=== PATIENT | male | born 1950 | race Caucasian/White ===

== ENCOUNTER 2021-12-18 19:14 | Inpatient (IN) | payer MEDICARE ==
[2021-12-18] MEDS ORDERED: Sodium Chloride 0.9% 10 ML Syringe FLUSH PRN (20:44)
[2021-12-18 21:37] LABS: ESTIMATED GFR > 60 (>60)
[2021-12-18] MEDS ORDERED: Sodium Chloride 0.9% 75 ML IV SCH (22:00)
[2021-12-18] MEDS ORDERED: Iopamidol 612 MG/ML 100 ML Bottle IV SCH (22:00)
[2021-12-18] MEDS ORDERED: Ondansetron 4 MG/2 ML SDV IVPUSH ONE (22:50)
[2021-12-18] MEDS ORDERED: Piperacillin/Tazobactam 3.375 GM in Sodium Chloride 0.9% 50 ML IV ONE (23:08)
[2021-12-19] MEDS ORDERED: DECITABINE PO SCH (00:08)
[2021-12-19] MEDS ORDERED: [UNRECOGNIZED DRUG - OTHER] PO SCH (00:08)
[2021-12-19] MEDS ORDERED: Albuterol 8 GM Inhaler INH PRN ×2 (00:08→17:22)
[2021-12-19] MEDS ORDERED: Prochlorperazine 10 MG Tab PO PRN (00:08)
[2021-12-19] MEDS ORDERED: Acetaminophen 325 MG Tab PO PRN (00:08)
[2021-12-19] MEDS ORDERED: Ondansetron 4 MG Tab.DIS PO PRN (00:08)
[2021-12-19] MEDS ORDERED: CEDAZURIDINE PO SCH (00:08)
[2021-12-19] MEDS: Sodium Chloride 0.9% 1,000 ML IV SCH ×2 (00:53→09:24)
[2021-12-19] MEDS ORDERED: Piperacillin/Tazobactam 3.375 GM in Sodium Chloride 0.9% 50 ML IV SCH (05:10)
[2021-12-19] MEDS ORDERED: Formoterol/Mometasone 200-5 MCG 8.8 GM Inhaler IH SCH ×2 (07:00→07:18)
[2021-12-19] MEDS: Acyclovir 200 MG Cap PO SCH ×2 (08:19→21:27)
[2021-12-19] MEDS: Lactobacillus Rhamnosus GG (Probiotic) Cap PO SCH (08:19)
[2021-12-19] MEDS: Folic Acid 1 MG Tab PO SCH (08:19)
[2021-12-19] MEDS: Fluconazole 100 MG Tab PO SCH (08:19)
[2021-12-19] MEDS: Multivitamins with Iron/Calcium/Folic Acid/Minerals Tab PO SCH (08:19)
[2021-12-19] MEDS: Calcium Carbonate/Vitamin D3 1500 MG-400 Units Tab PO SCH (08:19)
[2021-12-19] MEDS: Cholecalciferol (Vitamin D3) 25 MCG Tab PO SCH (08:19)
[2021-12-19] MEDS: Formoterol/Mometasone 200-5 MCG 8.8 GM Inhaler IH SCH ×2 (08:19→21:34)
[2021-12-19] MEDS: Allopurinol 100 MG Tab PO SCH (08:20)
[2021-12-19] MEDS: Lisinopril 5 MG Tab PO SCH (08:20)
[2021-12-19] MEDS: Metoprolol Succinate 25 MG Tab.ER PO SCH (08:20)
[2021-12-19] MEDS ORDERED: GINGER ROOT 550 MG PO SCH (09:00)
[2021-12-19] MEDS ORDERED: MILK THISTLE 150 MG PO SCH (09:00)
[2021-12-19] MEDS ORDERED: Sodium Chloride 0.9% 1,000 ML IV SCH ×2 (10:30→17:30)
[2021-12-19] MEDS: Piperacillin/Tazobactam/Dext 3.375 GM in Premix Bag 1 BAG IV SCH ×3 (10:58→21:28)
[2021-12-19] MEDS: [UNRECOGNIZED DRUG - OTHER] PO SCH (13:23)
[2021-12-19] MEDS ORDERED: diphenhydrAMINE 25 MG Cap PO PRN (17:14)
[2021-12-19] MEDS ORDERED: diphenhydrAMINE 25 MG Cap PO STA (17:15)
[2021-12-19] MEDS ORDERED: methylPREDNISolone Sodium Succinate 125 MG/2 ML SDV IVPUSH ONE (17:30)
[2021-12-19] MEDS ORDERED: EPINEPHrine 1 MG/ML SDV IM ONE (17:58)
[2021-12-19] MEDS ORDERED: Famotidine 20 MG/2 ML SDV IVPUSH ONE (18:00)
[2021-12-19] MEDS ORDERED: Fluconazole 100 MG Tab PO SCH (19:30)
[2021-12-19] MEDS: Rosuvastatin 10 MG Tab PO SCH (21:27)
[2021-12-20] MEDS: Piperacillin/Tazobactam/Dext 3.375 GM in Premix Bag 1 BAG IV SCH ×2 (04:11→09:48)
[2021-12-20] MEDS: Formoterol/Mometasone 200-5 MCG 8.8 GM Inhaler IH SCH ×2 (07:09→21:08)
[2021-12-20] MEDS: Allopurinol 100 MG Tab PO SCH (08:09)
[2021-12-20] MEDS: Lactobacillus Rhamnosus GG (Probiotic) Cap PO SCH (08:09)
[2021-12-20] MEDS: [UNRECOGNIZED DRUG - OTHER] PO SCH (08:09)
[2021-12-20] MEDS: Calcium Carbonate/Vitamin D3 1500 MG-400 Units Tab PO SCH (08:09)
[2021-12-20] MEDS: Cholecalciferol (Vitamin D3) 25 MCG Tab PO SCH (08:10)
[2021-12-20] MEDS: Folic Acid 1 MG Tab PO SCH (08:10)
[2021-12-20] MEDS: Multivitamins with Iron/Calcium/Folic Acid/Minerals Tab PO SCH (08:10)
[2021-12-20] MEDS: Acyclovir 200 MG Cap PO SCH ×2 (08:10→21:07)
[2021-12-20] MEDS: Fluconazole 100 MG Tab PO SCH (08:10)
[2021-12-20] MEDS: Metoprolol Succinate 25 MG Tab.ER PO SCH (08:10)
[2021-12-20] MEDS: Lisinopril 5 MG Tab PO SCH (08:11)
[2021-12-20] MEDS: POSACONAZOLE 100 MG PO SCH (11:59)
[2021-12-20] MEDS: Piperacillin/Tazobactam 3.375 GM in Sodium Chloride 0.9% 50 ML IV SCH ×2 (16:04→21:09)
[2021-12-20] MEDS: Rosuvastatin 10 MG Tab PO SCH (21:07)
[2021-12-21] MEDS: Piperacillin/Tazobactam 3.375 GM in Sodium Chloride 0.9% 50 ML IV SCH (03:56)
[2021-12-21] MEDS: Formoterol/Mometasone 200-5 MCG 8.8 GM Inhaler IH SCH (07:18)
[2021-12-21] MEDS ORDERED: predniSONE 20 MG Tab PO SCH (08:00)
[2021-12-21] MEDS: Cholecalciferol (Vitamin D3) 25 MCG Tab PO SCH (09:00)
[2021-12-21] MEDS: Multivitamins with Iron/Calcium/Folic Acid/Minerals Tab PO SCH (09:00)
[2021-12-21] MEDS: Calcium Carbonate/Vitamin D3 1500 MG-400 Units Tab PO SCH (09:00)
[2021-12-21] MEDS: Lactobacillus Rhamnosus GG (Probiotic) Cap PO SCH (09:00)
[2021-12-21] MEDS: Folic Acid 1 MG Tab PO SCH (09:00)
[2021-12-21] MEDS: Fluconazole 100 MG Tab PO SCH (09:01)
[2021-12-21] MEDS: Lisinopril 5 MG Tab PO SCH (09:01)
[2021-12-21] MEDS: Acyclovir 200 MG Cap PO SCH (09:02)
[2021-12-21] MEDS: Metoprolol Succinate 25 MG Tab.ER PO SCH (09:02)
[2021-12-21] MEDS: Allopurinol 100 MG Tab PO SCH (09:02)
[2021-12-21] MEDS: [UNRECOGNIZED DRUG - OTHER] PO SCH (09:03)
[2021-12-21] MEDS: Piperacillin/Tazobactam/Dext 3.375 GM in Premix Bag 1 BAG IV SCH ×2 (10:00→16:45)
[2021-12-21] MEDS ORDERED: Acetaminophen 325 MG Tab PO ONE (12:00)
[2021-12-21] MEDS ORDERED: diphenhydrAMINE 25 MG Cap PO ONE (12:00)
[2021-12-21] MEDS ORDERED: Famotidine 20 MG Tab PO ONE (12:00)
== END 2021-12-21 18:30 | disposition home or self-care (01) | DRG 392 ==
LOC: JP.ED 19:14 → JP.MS 12-19 00:06
PROVIDERS: ADMIT Internal Medicine; ATTEND Internal Medicine
PROC: 30233N1 Transfusion of Nonautologous Red Blood Cells into Peripheral Vein, Percutaneous Approach (ICD-10-PCS; principal; 2021-12-19)
PROC: 30233R1 Transfusion of Nonautologous Platelets into Peripheral Vein, Percutaneous Approach (ICD-10-PCS; 2021-12-19)
DX: K57.92 Diverticulitis of intestine, part unspecified, without perforation or abscess without bleeding (principal); K57.32 Diverticulitis of large intestine without perforation or abscess without bleeding; D61.818 Other pancytopenia; D84.9 Immunodeficiency, unspecified; C96.9 Malignant neoplasm of lymphoid, hematopoietic and related tissue, unspecified; E87.1 Hypo-osmolality and hyponatremia; D70.9 Neutropenia, unspecified; R50.81 Fever presenting with conditions classified elsewhere; D46.9 Myelodysplastic syndrome, unspecified; I25.10 Atherosclerotic heart disease of native coronary artery without angina pectoris; I49.9 Cardiac arrhythmia, unspecified; E78.00 Pure hypercholesterolemia, unspecified; Z86.74 Personal history of sudden cardiac arrest; M06.9 Rheumatoid arthritis, unspecified; I10 Essential (primary) hypertension; J45.909 Unspecified asthma, uncomplicated; K59.09 Other constipation; Z88.1 Allergy status to other antibiotic agents; Z91.018 Allergy to other foods; G40.909 Epilepsy, unspecified, not intractable, without status epilepticus; K21.9 Gastro-esophageal reflux disease without esophagitis; Z91.048 Other nonmedicinal substance allergy status; Z79.51 Long term (current) use of inhaled steroids; Z96.649 Presence of unspecified artificial hip joint; Z96.659 Presence of unspecified artificial knee joint; Z20.822 Contact with and (suspected) exposure to COVID-19; E87.8 Other disorders of electrolyte and fluid balance, not elsewhere classified; M10.9 Gout, unspecified; Z86.010 Personal history of colon polyps; Z79.899 Other long term (current) drug therapy; Z88.8 Allergy status to other drugs, medicaments and biological substances; Z91.013 Allergy to seafood; Z88.6 Allergy status to analgesic agent; Z86.19 Personal history of other infectious and parasitic diseases; Z95.5 Presence of coronary angioplasty implant and graft; Z90.49 Acquired absence of other specified parts of digestive tract
CPT/HCPCS: 36415; 74177; 80053; 81001; 84145; 85025; 86140; 87040; 96365; 96375; 99285 ×2; J2405; J2543; J3490 ×2; Q9967; U0002; 36430; 80048; 85027; 86850; 86900; 86901; 86920; 86922; 94640; A9270-GY; J0171; J2930; J7030; J7512; P9016; P9034

== ENCOUNTER 2023-01-10 06:51 | Day surgery (SDC) | payer MEDICARE ==
[~2023-01-10 06:51] MED LIST: Bupivacaine 0.5% 50 ML MDV ONE
[2023-01-10] MEDS ORDERED: fentaNYL 100 MCG/2 ML SDV ONE (07:07)
[2023-01-10] MEDS ORDERED: Midazolam 1 MG/ML 2 ML SDV ONE (07:07)
[2023-01-10] MEDS ORDERED: Propofol 200 MG/20 ML SDV ONE ×2 (07:07→08:40)
[2023-01-10] MEDS ORDERED: diphenhydrAMINE 50 MG/ML SDV IVPUSH ONE (07:18)
[2023-01-10] MEDS ORDERED: Meropenem 500 MG SDV ONE (07:27)
[2023-01-10] MEDS ORDERED: Sodium Chloride 0.9% 1,000 ML IV SCH (07:30)
[2023-01-10] MEDS ORDERED: Acetaminophen 1,000 MG in Premix Bag 1 BAG IV ONE (07:45)
[2023-01-10] MEDS ORDERED: Dextrose 5%-Lactated Ringers 1,000 ML IV SCH (08:00)
[2023-01-10] MEDS ORDERED: Linezolid 600 MG in Premix Bag 1 BAG IV ONE (08:00)
[2023-01-10] MEDS ORDERED: Ertapenem 1 GM in Sodium Chloride 0.9% 100 ML IV ONE (08:00)
[2023-01-10] MEDS ORDERED: Lidocaine 1% with EPINEPHrine 1:100,000 50 ML MDV INJECT ONE (09:15)
[2023-01-10] MEDS ORDERED: Linezolid 600 MG/300 ML Premix Bag IRR ONE (09:16)
== END 2023-01-10 10:28 | disposition home or self-care (01) ==
LOC: JP.SDS 06:51
PROVIDERS: ATTEND Surgery
DX: T82.598A Other mechanical complication of other cardiac and vascular devices and implants, initial encounter (principal); Z95.818 Presence of other cardiac implants and grafts; Z88.8 Allergy status to other drugs, medicaments and biological substances; Z91.013 Allergy to seafood
CPT/HCPCS: 36415; 36430; 36561; 36590; 77001; 87070; 87075; 87077; 87186; 87205; C1788; J0131; J1200; J1335; J1642; J2020; J2185; J2250; J2704; J3010; J3490; J7030; P9034

== ENCOUNTER 2023-02-03 09:04 | Inpatient (IN) | payer MEDICARE ==
[2023-02-03 10:16] LABS: APPEARANCE,URINE CLEAR (CLEAR); BILIRUBIN,URINE NEGATIVE (NEGATIVE); COLOR,URINE YELLOW (YELLOW); GLUCOSE,URINE NEGATIVE (NEGATIVE); KETONES,URINE NEGATIVE (NEGATIVE); LEUKOCYTE ESTERASE,URINE NEGATIVE (NEGATIVE); NITRITE,URINE NEGATIVE (NEGATIVE); OCCULT BLOOD,URINE NEGATIVE (NEGATIVE); PH,URINE 8.5 (5.0-8.0); PROTEIN,URINE TRACE mg/dL (NEGATIVE); UROBILINOGEN,URINE 0.2 EU/dL (0.2-1.0)
[2023-02-03 10:24] LABS: AMORPHOUS SEDIMENT,URINE NOT SEEN; BACTERIA,URINE NOT SEEN; EPITHELIAL CELLS,URINE NOT SEEN; MUCUS,URINE NOT SEEN; RBC,URINE 0-5 (0-5)
[2023-02-03] MEDS ORDERED: Acetaminophen 325 MG Tab PO ONE (10:33)
[2023-02-03] MEDS ORDERED: Lactated Ringers 1,000 ML IV SCH (10:45)
[2023-02-03] MEDS: Piperacillin/Tazobactam 4.5 GM in Sodium Chloride 0.9% 50 ML IV ONE ×2 (11:02→11:51)
[2023-02-03 11:06] LABS: HEMATOCRIT 28.7 % (38.4-49.7); HEMOGLOBIN 9.6 g/dL (12.9-16.9); MEAN CORPUSCULAR HGB CONC 33.4 g/dL (31.6-35.5); MEAN CORPUSCULAR VOLUME 107.5 fL (81.4-99.0); RED BLOOD CELL COUNT 2.67 M/uL (4.14-5.76); WHITE BLOOD CELL COUNT,WBC 4.5 K/uL (3.2-11.0)
[2023-02-03 11:20] LABS: PLATELET COUNT,PLT 20 K/uL (130-375)
[2023-02-03 11:22] LABS: LYMPHOCYTES ABSOLUTE MAN 0.54 K/uL (0.8-3.3); LYMPHOCYTES PERCENT MAN 12 % (24-44); MONOCYTES ABSOLUTE MAN 3.42 K/uL (0.20-0.90); MONOCYTES PERCENT MAN 76 % (2-6); NEUTROPHILS ABSOLUTE MAN 0.54 K/uL (1.0-7.6); SEG NEUTROPHILS PERCENT MAN 12 % (36-66)
[2023-02-03] MEDS ORDERED: Piperacillin/Tazobactam/Dext 4.5 GM in Premix Bag 1 BAG IV ONE (11:25)
[2023-02-03 11:29] LABS: LACTIC ACID 1.2 mmol/L (0.4-2.0)
[2023-02-03 11:33] LABS: A/G RATIO 0.9 (1.2-2.2); ALANINE AMINOTRANSFERASE,ALT 36 U/L (12-78); ALKALINE PHOSPHATASE 55 U/L (46-116); ASPARTATE AMNIOTRANSFERASE,AST 40 U/L (15-37); BILIRUBIN TOTAL 1.3 mg/dL (0.2-1.0); BLOOD UREA NITROGEN,BUN 11 mg/dL (7-18); C-REACTIVE PROTEIN 9.95 mg/dL (0.0-0.3); CALCIUM 8.4 mg/dL (8.5-10.1); CARBON DIOXIDE,CO2 28 mmol/L (21-32); CHLORIDE,CL 100 mmol/L (100-108); CREATININE 1.1 mg/dL (0.8-1.3); EST CRCL DRUG DOSING (CG) 52.36 mL/min; ESTIMATED GFR 70 mL/min (>60); GLUCOSE RANDOM 98 mg/dL (74-106); PROTEIN TOTAL,TP 6.4 g/dL (6.4-8.2); SODIUM,NA 135 mmol/L (140-148)
[2023-02-03] MEDS ORDERED: Sodium Chloride 0.9% 1,000 ML IV SCH (14:10)
[2023-02-03] MEDS ORDERED: Sennosides/Docusate Sodium 50-8.6 MG Tab PO PRN (14:10)
[2023-02-03] MEDS ORDERED: Melatonin 3 MG Tab PO PRN (14:10)
[2023-02-03] MEDS ORDERED: Ondansetron 4 MG Tab.DIS PO PRN (14:10)
[2023-02-03] MEDS ORDERED: Prochlorperazine 10 MG Tab PO PRN (14:10)
[2023-02-03] MEDS ORDERED: Furosemide 20 MG Tab PO PRN (14:10)
[2023-02-03] MEDS ORDERED: Magnesium Hydroxide 400 MG/5 ML Susp 30 ML Cup PO PRN (14:10)
[2023-02-03] MEDS: Piperacillin/Tazobactam/Dext 3.375 GM in Premix Bag 1 BAG IV SCH ×2 (16:53→22:30)
[2023-02-03] MEDS ORDERED: Piperacillin/Tazobactam 3.375 GM in Sodium Chloride 0.9% 50 ML IV SCH (17:00)
[2023-02-03] MEDS: Lactobacillus Rhamnosus GG (Probiotic) Cap PO SCH (20:54)
[2023-02-03] MEDS: Acyclovir 200 MG Cap PO SCH (20:54)
[2023-02-03] MEDS: Acetaminophen 325 MG Tab PO PRN (20:55)
[2023-02-03] MEDS ORDERED: Non-Formulary Medication 1 Each (Rosuvastatin [Crestor] 40 MG Tablet) PO SCH (21:00)
[2023-02-03] MEDS ORDERED: Rosuvastatin 10 MG Tab PO SCH (21:00)
[2023-02-03] MEDS ORDERED: ACYCLOVIR 400 MG PO SCH (21:00)
[2023-02-03] MEDS ORDERED: Metoprolol Succinate 25 MG Tab.ER PO ONE (22:45)
[2023-02-03] MEDS ORDERED: Docusate Sodium 100 MG Cap PO ONE (23:00)
[2023-02-04] MEDS: Piperacillin/Tazobactam/Dext 3.375 GM in Premix Bag 1 BAG IV SCH ×3 (04:58→18:49)
[2023-02-04 05:43] LABS: HEMATOCRIT 24.2 % (38.4-49.7); HEMOGLOBIN 8.1 g/dL (12.9-16.9); MEAN CORPUSCULAR HEMOGLOBIN 36.3 pg (31.6-35.5); MEAN CORPUSCULAR HGB CONC 33.5 g/dL (31.6-35.5); MEAN CORPUSCULAR VOLUME 108.5 fL (81.4-99.0); RED BLOOD CELL COUNT 2.23 M/uL (4.14-5.76); WHITE BLOOD CELL COUNT,WBC 5.1 K/uL (3.2-11.0)
[2023-02-04 05:53] LABS: CALCIUM 7.9 mg/dL (8.5-10.1); CREATININE 1.2 mg/dL (0.8-1.3); POTASSIUM,K 3.8 mmol/L (3.6-5.2)
[2023-02-04 06:12] LABS: ANION GAP 9.8 mmol/L (5.0-14.0)
[2023-02-04 06:13] LABS: PLATELET COUNT,PLT 21 K/uL (130-375)
[2023-02-04 06:19] LABS: BAND ABSOLUTE MAN 0.05 K/uL; BAND PERCENT MAN 1 % (5-11); BLAST ABSOLUTE MAN 0.51 K/uL (0-0); BLASTS PERCENT MAN 10 %; LYMPHOCYTES ABSOLUTE MAN 0.71 K/uL (0.8-3.3); LYMPHOCYTES PERCENT MAN 14 % (24-44); MONOCYTES ABSOLUTE MAN 0.26 K/uL (0.20-0.90); MONOCYTES PERCENT MAN 5 % (2-6); NEUTROPHILS ABSOLUTE MAN 0.71 K/uL (1.0-7.6); PROMYELOCYTE ABSOLUTE MAN 2.86 K/uL; SEG NEUTROPHILS PERCENT MAN 14 % (36-66)
[2023-02-04 06:20] LABS: ANISOCYTOSIS MODERATE; POIKILOCYTOSIS MODERATE; PROMYELOCYTE PERCENT MAN 56 %
[2023-02-04] MEDS ORDERED: Levofloxacin 250 MG Tab PO SCH (07:30)
[2023-02-04] MEDS: Ondansetron 4 MG/2 ML SDV IV PRN ×3 (08:14→18:10)
[2023-02-04] MEDS: Acetaminophen 325 MG Tab PO PRN ×2 (08:20→15:17)
[2023-02-04] MEDS ORDERED: Fluconazole 100 MG Tab PO SCH (09:00)
[2023-02-04] MEDS ORDERED: LEVOFLOXACIN 500 MG PO SCH (09:00)
[2023-02-04] MEDS ORDERED: Folic Acid 1 MG Tab PO SCH (09:00)
[2023-02-04] MEDS ORDERED: Metoprolol Succinate 25 MG Tab.ER PO SCH (09:00)
[2023-02-04] MEDS ORDERED: Allopurinol 100 MG Tab PO SCH (09:00)
[2023-02-04] MEDS: Acyclovir 200 MG Cap PO SCH (10:48)
[2023-02-04] MEDS: Lactobacillus Rhamnosus GG (Probiotic) Cap PO SCH (10:48)
[2023-02-04] MEDS ORDERED: ALBUTEROL INH PRN (12:18)
[2023-02-04] MEDS ORDERED: Sodium Chloride 0.9% 10 ML Syringe FLUSH ONE (13:41)
[2023-02-04] MEDS ORDERED: Iopamidol 612 MG/ML 500 ML Multipack Bottle IV ONE (13:41)
[2023-02-04] MEDS ORDERED: Sodium Chloride 0.9% 50 ML IV SCH (13:45)
[2023-02-04] MEDS ORDERED: Vancomycin 1 GM SDV IV SCH (14:00)
[2023-02-04] MEDS ORDERED: Furosemide 40 MG/4 ML VIAL IVPUSH ONE (16:06)
[2023-02-04] MEDS ORDERED: Morphine 2 MG/ML SYRINGE IVPUSH ONE ×2 (16:07→16:33)
[2023-02-04 16:12] LABS: BASE EXCESS ARTERIAL -6.3 mm/L; BICARBONATE,ARTERIAL 21.8 mmol/L (22.0-26.0); CARBOXYHEMOGLOBIN 2.5 % (0.0-1.6); METHEMOGLOBIN 1.1 %; O2 SATURATION ARTERIAL 74.9 % (95.0-98.0); OXYHEMOGLOBIN 72.2 %; PCO2 ARTERIAL 56.4 mmHg (35.0-42.0); PO2 ARTERIAL 54.8 mmHg (75.0-100.0); TOTAL HEMOGLOBIN 13.2 g/dL (13.5-18.0)
[2023-02-04 16:13] LABS: HEMATOCRIT 38.5 % (38.4-49.7); HEMOGLOBIN 12.8 g/dL (12.9-16.9); MEAN CORPUSCULAR HEMOGLOBIN 36.8 pg (31.6-35.5); MEAN CORPUSCULAR HGB CONC 33.2 g/dL (31.6-35.5); MEAN CORPUSCULAR VOLUME 110.6 fL (81.4-99.0); PLATELET COUNT,PLT 22 K/uL (130-375); RED BLOOD CELL COUNT 3.48 M/uL (4.14-5.76); WHITE BLOOD CELL COUNT,WBC 6.7 K/uL (3.2-11.0)
[2023-02-04 16:34] LABS: HEMOGLOBIN 13.6 g/dL (12.9-16.9); MEAN CORPUSCULAR HEMOGLOBIN 36.9 pg (31.6-35.5); MEAN CORPUSCULAR HGB CONC 33.2 g/dL (31.6-35.5); MEAN CORPUSCULAR VOLUME 111.1 fL (81.4-99.0); RED BLOOD CELL COUNT 3.69 M/uL (4.14-5.76); WHITE BLOOD CELL COUNT,WBC 18.5 K/uL (3.2-11.0)
[2023-02-04 16:43] LABS: A/G RATIO 0.7 (1.2-2.2); ALANINE AMINOTRANSFERASE,ALT 45 U/L (12-78); ALBUMIN 2.6 g/dL (3.4-5.0); ALKALINE PHOSPHATASE 66 U/L (46-116); ASPARTATE AMNIOTRANSFERASE,AST 76 U/L (15-37); BILIRUBIN TOTAL 1.3 mg/dL (0.2-1.0); BLOOD UREA NITROGEN,BUN 11 mg/dL (7-18); CALCIUM 7.7 mg/dL (8.5-10.1); CARBON DIOXIDE,CO2 25 mmol/L (21-32); CHLORIDE,CL 105 mmol/L (100-108); CREATININE 1.4 mg/dL (0.8-1.3); EST CRCL DRUG DOSING (CG) 41.14 mL/min; ESTIMATED GFR 52 mL/min (>60); GLUCOSE RANDOM 134 mg/dL (74-106); POTASSIUM,K 4.5 mmol/L (3.6-5.2); PROTEIN TOTAL,TP 6.2 g/dL (6.4-8.2); SODIUM,NA 138 mmol/L (140-148)
[2023-02-04 16:44] LABS: ANION GAP 12.5 mmol/L (5.0-14.0)
[2023-02-04] MEDS ORDERED: Diltiazem 25 MG/5 ML SDV IVPUSH ONE (16:54)
[2023-02-04] MEDS ORDERED: Diltiazem 100 MG in Sodium Chloride 0.9% 100 ML IV SCH (17:00)
[2023-02-04] MEDS ORDERED: Norepinephrine Bit/D5W Premix 250 ML ONE (17:31)
[2023-02-04] MEDS ORDERED: Sodium Chloride 0.9% 500 ML IV ONE (17:35)
[2023-02-04] MEDS ORDERED: Norepinephrine Bit/D5W Premix 4 MG in Premix Bag 1 BAG IV SCH (17:45)
[2023-02-04 17:51] LABS: BASE EXCESS ARTERIAL -11.3 mm/L; BICARBONATE,ARTERIAL 13.5 mmol/L (22.0-26.0); CARBOXYHEMOGLOBIN 2.4 % (0.0-1.6); METHEMOGLOBIN 0.7 %; O2 SATURATION ARTERIAL 98.2 % (95.0-98.0); OXYHEMOGLOBIN 95.2 %; PCO2 ARTERIAL 28.3 mmHg (35.0-42.0); TOTAL HEMOGLOBIN 13.3 g/dL (13.5-18.0)
[2023-02-04] MEDS ORDERED: Morphine 2 MG/ML SYRINGE IVPUSH PRN ×2 (18:29→18:39)
[2023-02-04 18:35] LABS: ATYPICAL LYMPHOCYTES FEW; BAND ABSOLUTE MAN 0.27 K/uL; BAND PERCENT MAN 4 % (5-11); LYMPHOCYTES ABSOLUTE MAN 2.81 K/uL (0.8-3.3); LYMPHOCYTES PERCENT MAN 42 % (24-44); MICROCYTOSIS FEW; MONOCYTES ABSOLUTE MAN 2.55 K/uL (0.20-0.90); MONOCYTES PERCENT MAN 38 % (2-6); MYELOCYTE ABSOLUTE MAN 0.54; MYELOCYTE PERCENT MAN 8 %; NEUTROPHILS ABSOLUTE MAN 0.54 K/uL (1.0-7.6); NRBC MANUAL 3; SEG NEUTROPHILS PERCENT MAN 8 % (36-66)
[2023-02-04] MEDS ORDERED: LORazepam 2 MG/ML SDV IVPUSH PRN (18:40)
[2023-02-04] MEDS ORDERED: Docusate Sodium 100 MG Cap PO SCH (21:00)
== END 2023-02-05 00:03 | disposition expired | DRG 872 ==
LOC: JP.ED 09:04 → JP.MS 13:15 → JP.ICU 02-04 17:50
PROVIDERS: ADMIT Internal Medicine; ATTEND Internal Medicine
PROC: 30233N1 Transfusion of Nonautologous Red Blood Cells into Peripheral Vein, Percutaneous Approach (ICD-10-PCS; principal; 2023-02-05)
PROC: 4A13XR1 Monitoring of Arterial Saturation, Peripheral, External Approach (ICD-10-PCS; 2023-02-05)
PROC: 5A09357 Assistance with Respiratory Ventilation, Less than 24 Consecutive Hours, Continuous Positive Airway Pressure (ICD-10-PCS; 2023-02-05)
PROC: 3E033XZ Introduction of Vasopressor into Peripheral Vein, Percutaneous Approach (ICD-10-PCS; 2023-02-05)
DX: A41.9 Sepsis, unspecified organism (principal); D61.818 Other pancytopenia; J81.1 Chronic pulmonary edema; E87.29 Other acidosis; R09.02 Hypoxemia; I95.9 Hypotension, unspecified; D70.9 Neutropenia, unspecified; R50.81 Fever presenting with conditions classified elsewhere; D46.9 Myelodysplastic syndrome, unspecified; I10 Essential (primary) hypertension; M06.9 Rheumatoid arthritis, unspecified; J45.909 Unspecified asthma, uncomplicated; D84.9 Immunodeficiency, unspecified; K59.09 Other constipation; I25.10 Atherosclerotic heart disease of native coronary artery without angina pectoris; F32.A Depression, unspecified; Z66 Do not resuscitate; E78.00 Pure hypercholesterolemia, unspecified; D73.81 Neutropenic splenomegaly; I48.91 Unspecified atrial fibrillation; R59.0 Localized enlarged lymph nodes; Z79.2 Long term (current) use of antibiotics; Z86.16 Personal history of COVID-19; Z98.49 Cataract extraction status, unspecified eye; Z90.49 Acquired absence of other specified parts of digestive tract; Z98.890 Other specified postprocedural states; Z96.649 Presence of unspecified artificial hip joint; Z96.659 Presence of unspecified artificial knee joint; Z88.8 Allergy status to other drugs, medicaments and biological substances; Z91.010 Allergy to peanuts; Z91.013 Allergy to seafood; Z91.018 Allergy to other foods; K21.9 Gastro-esophageal reflux disease without esophagitis; F12.10 Cannabis abuse, uncomplicated; Z79.899 Other long term (current) drug therapy; Z95.5 Presence of coronary angioplasty implant and graft
CPT/HCPCS: 36415; 71045 ×2; 80053; 81001; 83605; 84145; 85025; 86140; 87040 ×2; 87086; 99285; A9270; J2543; J7120; 36430; 36600; 51702; 74177; 74177-26; 80048; 82803; 84484; 85027; 86850; 86900; 86901; 86920; 86922; 94660; J1940; J2270; J2405; J3370; J3490; J7030; J7040; J7050; P9016; Q9967; U0002